=== PATIENT | male | born 1945 | race Two or more races ===

== ENCOUNTER 2019-10-08 11:00 | Day surgery (SDC) | payer OTHER | END 2019-10-08 15:15 | disposition home or self-care (01) | LOC: AMB-ENDOS 11:00 | DX: K62.7 Radiation proctitis (principal); K62.4 Stenosis of anus and rectum ==

== ENCOUNTER 2020-10-30 06:00 | Day surgery (SDC) | payer OTHER ==
[~2020-10-30 06:00] MED LIST: ATACAND16 MG PO; CRESTOR40 MG PO; SYNTHROID125 MCG PO; TRIJARDY XR 121 EACH PO; ZETIA10 MG PO
[2020-10-30] MEDS ORDERED: ULTRACET PO (09:25)
== END 2020-10-30 13:50 | disposition home or self-care (01) ==
LOC: CIR.AMB 06:00 → CIR LITO 10:00 → CIR.AMB 13:50
PROVIDERS: ATTEND Surgery
DX: K64.8 Other hemorrhoids (principal); K62.7 Radiation proctitis; Z20.822 Contact with and (suspected) exposure to COVID-19